=== PATIENT | male | born 1955 | race Caucasian/White ===

== ENCOUNTER 2022-11-16 16:59 | Emergency (ER) | payer OTHER ==
[2022-11-16 17:22] LABS: BASOPHILS % (AUTO) 0.4 %; EOSINOPHILS # (AUTO) 0.1 10^3/uL (0.0-0.7); EOSINOPHILS % (AUTO) 0.6 %; HCT - HEMATOCRIT 48.3 % (42.0-52.0); HGB - HEMOGLOBIN 16.4 g/dL (14.0-18.0); LYMPHOCYTES # (AUTO) 1.7 10^3/uL (1.5-3.5); MEAN CORPUSCULAR HEMOGLOBIN 33.5 pg (27.0-31.0); MEAN CORPUSCULAR VOLUME 98.6 fL (80.0-94.0); MEAN PLATELET VOLUME 9.1 fL (7.4-11.4); NEUTROPHILS # (AUTO) 5.5 10^3/uL (1.5-6.6); NEUTROPHILS % (AUTO) 66.6 %; PLT - PLATELET COUNT 241 10^3/uL (130-450); RED CELL DISTRIBUTION WIDTH 12.4 % (12.0-15.0); WHITE BLOOD COUNT 8.3 x10^3/uL (4.8-10.8)
--- NOTE | 2022-11-16 17:32 | XRAY Report ---
PROCEDURE: Chest 1 View X-Ray INDICATIONS: Chest pain TECHNIQUE: One view of the chest was acquired. COMPARISON: None. FINDINGS: Surgical changes and devices: None. Lungs and pleura: An incomplete inspiratory result is noted, with low lung volumes and crowding of t he vascular markings. No focal infiltrates are seen. No large pneumothorax or large pleural effusion can be seen. Mediastinum: The aorta is prominent and tortuous. The cardiac contours are within normal limits. Bones and chest wall: No suspicious bony lesions. Overlying soft tissues appear unremarkable. IMPRESSION: Portable chest within normal limits for age. Reviewed by: Ga Mitchell MD on 11/16/2022 4:31 PM [facility]EL[facility] Approved by: Ga Mitchell MD on 11/16/2022 4:31 PM ROMEL[facility] Station ID: [id number]
[2022-11-16 17:34] LABS: ALBUMIN 4.1 g/dL (3.2-5.5); ALBUMIN/GLOBULIN RATIO 1.3 (1.0-2.2); CALCIUM 9.1 mg/dL (8.5-10.3); CREATININE 0.8 mg/dL (0.6-1.2); POTASSIUM 4.1 mmol/L (3.5-5.0); TOTAL PROTEIN 7.3 g/dL (6.7-8.2)
--- NOTE | 2022-11-16 17:40 | ED Physician Documentation ---
PD HPI CHEST PAIN - Stated complaint Stated Complaint: TIGHT CHEST - Chief complaint Chief Complaint: Cardiac - History obtained from History obtained from: Patient - History of Present Illness Timing - onset: Yesterday Pain level max: 2 Pain level now: 0 Quality: Pressure Location: Epigastric Radiation: Neck Worsened by: No: Exertion, Inspiration, Eating, Movement, Palpation Associated symptoms: No: Shortness of air, Diaphoresis, Nausea, Vomiting, Feeling faint / dizzy, General Weakness, Palpitations, Cough - Additional information Additional information: Patient is a 66-year-old male who comes into the emergency department with chest pain. This started yesterday. Worse with lying down, better with sitting up. He states that it feels like it comes up his chest to his neck. He states that it feels like a pressure. No difficulty breathing, no nausea or vomiting. 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 Does not have any chest pain with exertion. This does not change with exertion, eating, movement, palpation. Currently asymptomatic. No cardiac history. He has visiting from [place]. They drove here. He is here for his mother's . Review of Systems Constitutional: denies: Fever, Chills Nose: denies: Rhinorrhea / runny nose, Congestion Throat: denies: Sore throat Cardiac: denies: Palpitations Respiratory: denies: Dyspnea, Cough, Hemoptysis, Wheezing GI: denies: Vomiting, Diarrhea, Hematemesis, Bloody / black stool : denies: Dysuria, Frequency, Hesitancy Skin: denies: Rash Musculoskeletal: denies: Neck pain, Back pain Neurologic: denies: Headache PD PAST MEDICAL HISTORY - Past Medical History Past Medical History: No - Past Surgical History Past Surgical History: Yes General: Other (Leg surgery) - Present Medications Home Medications: Ambulatory Orders Medication Instructions Recorded Confirmed No Known Home Medications 11/16/22 11/16/22 - Allergies Allergies/Adverse Reactions: Allergies Allergy/AdvReac Type Severity Reaction Status Date / Time No Known Drug Allergies Allergy Verified 11/16/22 17:06 - Living Situation Living Situation: reports: With family Living Arrangement: reports: At home - Social History Does the pt smoke?: No Does the pt have substance abuse?: No - Family History Family history: reports: Non contributory PD ED PE NORMAL - Vitals Vital signs reviewed: Yes - General General: Alert and oriented X 3, No acute distress - HEENT HEENT: Moist mucous membranes, Pharynx benign - Neck Neck: Supple, no meningeal sign, No bony TTP - Cardiac Cardiac: RRR, Strong equal pulses - Respiratory Respiratory: No respiratory distress, Clear bilaterally - Abdomen Abdomen: Soft, Non tender, Non distended - Back Back: No CVA TTP, No spinal TTP - Derm Derm: Warm and dry, No rash - Extremities Extremities: No edema, No calf tenderness / cord - Neuro Neuro: Alert and oriented X 3 - Psych Psych: Normal mood, Normal affect Results - Vitals Vitals: Vital Signs - 24 hr 11/16/22 11/16/22 11/16/22 17:04 17:30 17:42 Temperature 37.5 C Heart Rate 73 72 72 Respiratory 16 18 18 Rate Blood Pressure 164/86 H 172/90 H 150/86 H O2 Saturation 99 100 99 11/16/22 11/16/22 18:21 18:33 Temperature Heart Rate 67 57 L Respiratory 18 18 Rate Blood Pressure 164/89 H 142/77 H O2 Saturation 98 100 Oxygen O2 Source Room air - EKG (time done) 1705 EKG releavant findings:: EKG personally interpreted by author of this note. Relevant findings are: Rate: Rate (enter#) (75) Rhythm: NSR Springer: Normal Intervals: Normal SD QRS: Normal Ischemia: Normal ST segments - Labs Labs: Laboratory Tests 11/16/22 11/16/22 11/16/22 17:16 17:16 17:16 WBC 8.3 RBC 4.90 Hgb 16.4 Hct 48.3 MCV 98.6 H MCH 33.5 H MCHC 34.0 RDW 12.4 Plt Count 241 MPV 9.1 Neut # (Auto) 5.5 Lymph # (Auto) 1.7 [place] # (Auto) 1.0 Eos # (Auto) 0.1 Baso # (Auto) 0.0 Absolute Nucleated RBC 0.00 Nucleated RBC % 0.0 Sodium 136 Potassium 4.1 Chloride 100 L Carbon Dioxide 29 Anion Gap 7.0 BUN 15 Creatinine 0.8 Estimated GFR (MDRD) 97 Glucose 117 H Calcium 9.1 Total Bilirubin 1.0 AST 24 ALT 27 Alkaline Phosphatase 40 L Troponin I High Sens 7.2 Total Protein 7.3 Albumin 4.1 Globulin 3.2 Albumin/Globulin Ratio 1.3 Lipase 47 - Rads (name of study) cxr Relevant Findings:: Final report received, See rad report PD Medical Decision Making - ED course Complexity details: reviewed results, re-evaluated patient, considered differential (No ST elevation VA, no aortic dissection, no PE, no tension pneumothorax, no aortic aneurysm), d/w patient, d/w family, d/w solar sales consultant ED course: No acute findings on EKG, laboratory testing. Negative high sensitivity troponin. Negative chest x-ray. Atypical chest pain. Possible GERD? We will have him continue his aspirin at home. He exercises regularly and does not have any exertional chest pain with this. Recommend cardiac stress test when he returns home tomorrow. No evidence of pulmonary embolus. Patient counseled regarding signs and symptoms for which I believe and urgent re-evaluation would be necessary. Patient with good understanding of and agreement to plan and is comfortable going home at this time This document was made in part using voice recognition software. While efforts are made to proofread this document, sound alike and grammatical errors may occur. Departure - Departure Disposition: 01 Home, Self Care Clinical Impression: Chest pain Qualifiers: Chest pain type: unspecified Qualified Code(s): R07.9 - Chest pain, unspecified Condition: Good Instructions: ED Chest Pain Atypical Unkn Cause Follow-Up: your,doctor in 1week [Other] Comments: Please follow-up with your doctor when you return home to [place] for further care. Your EKG, chest x-ray and laboratory testing did not show any acute abnormalities today. It is recommended you have a cardiac stress test when you return home. Continue your daily aspirin. Please return if you worsen Discharge Date/Time: 11/16/22 18:47
[2022-11-16] MEDS ORDERED: SUCRALFATE 1 GM/10 ML UDC PO STA (17:51)
[2022-11-16] MEDS ORDERED: MAG HYDROX/AL HYDROX/SIMETH 30 ML UDC PO STA (17:51)
[2022-11-16] MEDS ORDERED: FAMOTIDINE 20 MG TABLET PO STA (17:51)
[2022-11-16 18:34] VITALS: BP 142/77
== END 2022-11-16 18:47 | disposition home or self-care (01) ==
LOC: ED 16:59
DX: R07.9 Chest pain, unspecified (principal); Z79.82 Long term (current) use of aspirin
CPT/HCPCS: 36415; 71045; 80053; 83690; 84484; 85025; 93005; 99283; 99284; A9270